=== PATIENT | female | born 1955 | race Caucasian/White ===

== ENCOUNTER → 2016-12-10 | Outpatient (CLI) | payer OTHER ==
[2016-12-10 13:57] LABS: BASO % 0.5 %; BASO ABS # 0.04 K/uL (0-0.2); COMPLETE YES; EOS % 3.8 %; IG% 0.4 %; LYMPH % 24.2 %; LYMPH ABS # 2.03 K/uL (1.2-3.4); MEAN CELL VOLUME 89.5 fL (80-100); MEAN CORPUSCULAR HGB CONC 32.4 g/dl (32-36); MEAN PLATELET VOLUME 9.4 fL (7.4-10.4); MONO % 10.2 %; NEUT % 60.9 %; PLATELET COUNT 233 K/uL (130-400); RED BLOOD COUNT 5.14 M/uL (4.2-5.4)
[2016-12-10 14:30] LABS: ALT/SGPT 41 U/L (12-78); AST/SGOT 31 U/L (15-37); BLOOD UREA NITROGEN 12 mg/dl (7-18); BUN/CREATININE RATIO 16.1 (10-20); CALCIUM 8.7 mg/dl (8.5-10.1); CARBON DIOXIDE 24 mmol/L (21-32); CHLORIDE 107 mmol/L (98-107); CHOLESTEROL 167 mg/dl (0-200); CREATININE 0.75 mg/dl (0.60-1.20); GLUCOSE 194 mg/dl (70-99); POTASSIUM 4.3 mmol/L (3.5-5.1); SODIUM 139 mmol/L (136-145); TRIGLYCERIDES 160 mg/dl (0-150); VERY LOW DENSITY LIPOPROT CALC 32 mg/dl
[2016-12-10 14:33] LABS: ALKALINE PHOSPHATASE 77 U/L (45-117); CHOLESTEROL/HDL RATIO 3.5; HDL CHOLESTEROL 48 mg/dl; LDL CHOLESTEROL CALCULATED 87 mg/dl
[2016-12-11 05:50] LABS: ESTIMATED AVERAGE GLUCOSE 237 mg/dl; HA1C FLAG Normal (Normal)
== END | disposition home or self-care (01) ==
LOC: C.LABBC 10:15
PROVIDERS: ATTEND Family Medicine
DX: E11.65 Type 2 diabetes mellitus with hyperglycemia (principal); E78.5 Hyperlipidemia, unspecified; Z13.0 Encounter for screening for diseases of the blood and blood-forming organs and certain disorders involving the immune mechanism

== ENCOUNTER → 2017-11-05 | Outpatient (CLI) | payer OTHER ==
[2017-11-05 13:49] LABS: HEMOGLOBIN A1C 8.7 % (4.5-5.6)
[2017-11-05 14:23] LABS: ALBUMIN 3.5 gm/dl (3.4-5.0); ALT/SGPT 35 U/L (12-78); AST/SGOT 24 U/L (15-37); BLOOD UREA NITROGEN 13 mg/dl (7-18); CALCIUM 8.8 mg/dl (8.5-10.1); CARBON DIOXIDE 27 mmol/L (21-32); CREATININE 0.81 mg/dl (0.60-1.20); GLUCOSE 184 mg/dl (70-99); POTASSIUM 4.3 mmol/L (3.5-5.1); SODIUM 136 mmol/L (136-145)
[2017-11-05 14:25] LABS: ALKALINE PHOSPHATASE 71 U/L (45-117); CHOLESTEROL 140 mg/dl (0-200); LDL CHOLESTEROL CALCULATED 72 mg/dl; TOTAL PROTEIN 7.2 gm/dl (6.4-8.2)
== END | disposition home or self-care (01) ==
LOC: C.LABBC 11:15
PROVIDERS: ATTEND Nurse Practitioner Adult Health
DX: E11.65 Type 2 diabetes mellitus with hyperglycemia (principal); E78.5 Hyperlipidemia, unspecified; I10 Essential (primary) hypertension

== ENCOUNTER → 2018-04-26 | Outpatient (CLI) | payer OTHER ==
[~2018-04-26] MED LIST: ADVIN25/60 INH; ASCA500 PO; HUMALOG SQ; INSDGIPEN SC; LIRA18IN SQ; LISI-729 PO; MONT1TAB5 PO; NAPR1TAB9 PO; PRVHFAIN INH; SACC250C11 PO; SIMV40TA2 PO; TIOT1AER2 INH; VARE1PAK15 PO; XLTOPS OPB
[2018-04-26 12:46] LABS: BASO % 0.8 %; BASO ABS # 0.07 K/uL (0-0.2); EOS % 7.5 %; EOS ABS # 0.63 K/uL (0-0.5); IG# 0.04 K/uL (0.00-0.02); LYMPH % 29.2 %; LYMPH ABS # 2.44 K/uL (1.2-3.4); MEAN CELL VOLUME 91.1 fL (80-100); MEAN CORPUSCULAR HEMOGLOBIN 29.1 pg (25-34); MEAN CORPUSCULAR HGB CONC 31.9 g/dl (32-36); MEAN PLATELET VOLUME 9.2 fL (7.4-10.4); MONO % 9.2 %; MONO ABS # 0.77 K/uL (0.11-0.59); NEUT % 52.8 %; NEUT ABS # 4.42 K/uL (1.4-6.5); PLATELET COUNT 234 K/uL (130-400); RED CELL DISTRIBUTION WIDTH CV 13.9 % (11.5-14.5); RED CELL DISTRIBUTION WIDTH SD 46.5 fL (36.4-46.3); WHITE BLOOD COUNT 8.37 K/uL (4.8-10.8)
[2018-04-26 12:58] LABS: BLOOD UREA NITROGEN 12 mg/dl (7-18); CALCIUM 8.7 mg/dl (8.5-10.1); CARBON DIOXIDE 25 mmol/L (21-32); CREATININE 0.75 mg/dl (0.60-1.20); GLUCOSE 141 mg/dl (70-99); POTASSIUM 4.3 mmol/L (3.5-5.1); PTT PATIENT 28.9 SECONDS (21.0-31.0); SODIUM 138 mmol/L (136-145)
--- NOTE | 2018-05-05 13:14 | CODING QUERY MEDICAL NECESSITY ---
CQTREATMENT RENDERED WITHOUT A DIAGNOSIS To promote full compliance with coding requirements relating to patient care, physician participation is requested in all cases of food and beverage associate uncertainty. Please assist us with providing a diagnosis/symptom for the test(s) below: A diagnosis/symptom was not documented on your Order. A valid diagnosis/symptom is required to bill all insurances. Please remember that we are unable to code a diagnosis of rule out, probable, possible, questionable, or suspected. Tests that require a diagnosis: DOS 04/26/18 CBC TEST PARTIAL RENAL PROFILE TEST C-REACTIVE PROTEIN TEST Provider Signature: Date: Thank you Ngozi Martinez Health Information Management Once completed, please kindly fax back to [phone] For questions please call [phone]
== END | disposition home or self-care (01) ==
LOC: C.LABBC 09:28
PROVIDERS: ATTEND Orthopaedic Surgery Sports Medicine
DX: Z01.812 Encounter for preprocedural laboratory examination (principal)

== ENCOUNTER 2018-05-26 08:17 | Inpatient (IN) | payer OTHER ==
[2018-02-21 08:08] VITALS: BMI 41.0
--- NOTE | 2018-05-17 17:21 | HISTORY & PHYSICAL EXAMINATION ---
DATE OF ADMISSION: 05/26/2018 CHIEF COMPLAINT: Left knee pain. HISTORY OF PRESENT ILLNESS: A 62-year-old white female referred by my partner Dr. Han for surgical treatment of her left knee. She has a long history of left knee pain and discomfort, describes it has gotten worse over time. She has been managed with multiple conservative modalities including injections which helped her temporarily only and have become less effective over time. Pain is mostly medial, it is increased with weightbearing. The knee also feels unstable like it can buckle at times. She reports catching and locking. She would like to have her knee fixed. PAST MEDICAL HISTORY: Past medical history significant for: 1. Asthma. 2. Diabetes with a history of poor control, currently undergoing strict monitoring to try and improve her control. 3. Hiatal hernia. 4. Obesity with a BMI of 41.3. PAST SURGICAL HISTORY: Previous surgeries include: 1. Herniorrhaphy. 2. . 3. Tubal . ALLERGIES: METFORMIN AND JANUVIA. CURRENT MEDICINES: Include: 1. Ventolin inhaler 2 puffs as needed. 2. Symbicort 2 puffs twice a day. 3. Spiriva inhaler once a day. 4. Simvastatin 40 mg daily. 5. Lisinopril 2.5 mg. 6. Montelukast 10 mg a day. 7. Humalog insulin. 8. Lantus insulin. 9. Latanoprost eyedrops 1 drop in each eye in the evening. SOCIAL HISTORY: A 62-year-old white female. She is . She lives in [place]. She smokes a pack of cigarettes a day. No significant alcohol intake. FAMILY HISTORY: Noncontributory. REVIEW OF SYSTEMS: Fairly poorly controlled diabetes. She is currently undergoing close monitoring to try and get this under better control. Also has a history of smoking. Denies any history of DVT or PE. PHYSICAL EXAMINATION: GENERAL: Physical examination reveals a pleasant middle-aged female, looks to be in reasonably good health. HEENT: Benign. NECK: Supple. No lymphadenopathy. LUNGS: Clear to auscultation. HEART: Has a regular rate and rhythm. ABDOMEN: Soft, nontender, nondistended. EXTREMITIES: Grossly neurovascularly intact except as follows: Examination of the left knee reveals the patient ambulates independently. She has got slight varus alignment to her knee. She does limp on the left side. [id number] size knee effusion. Range of motion is 5-1.5. No instability. No pain with hip motion. X-RAYS: X-rays of the left knee reviewed. She has advanced left knee DJD. Has complete loss of medial joint space. She has significant patellofemoral disease as well. Very large knee joint effusion. ASSESSMENT: A 62-year-old white female with advanced left knee degenerative joint disease unresponsive to conservative therapy. She would like to have her left knee replaced. PLAN: We are going to take her to the operating room to do a total knee replacement. The risks and benefits of this procedure were explained to the patient including but not limited to DVT, PE, , infection, neurological injury, vascular injury, bleeding problem, pain, limited range of motion, stiffness, failure to relieve her symptoms, incomplete relief of symptoms, and need for further surgery in future, fracture, leg length inequality, nerve palsy, need for blood transfusion, etc. The patient understands and desires to proceed. Informed consent was obtained. The patient does have poorly controlled diabetes. She is trying to get this under better control. I did talk to her about her increased risk of infection as a result and she is aware of. She is planning to be discharged to home using home nursing agency. She is completing smoking program. She knows to hold her lisinopril the morning of surgery. MIREILLE
[2018-05-26] VITALS (9 sets, daily range): BP systolic 122–174; BP diastolic 66–96; PULSE 84–96; TEMP 36.5–36.8; O2SAT 92–97; BMI 41.0
[~2018-05-26] VITALS: Ht 157.5 cm; Wt 102.5 kg
[2018-05-26] MEDS: LACTATED RINGER'S 1000ML 500 ML IV SCH ×2 (06:00→09:02)
[~2018-05-26 08:17] MED LIST changes: +ACETAMINOPHEN 500 MG TAB PO SCH; +BUPIVACAINE 0.25% 30 ML VIAL ONE; +BUPIVACAINE 0.5 % 5 MG/1 ML PF 10ML VIAL ONE; +BUPIVACAINE LIPOSOME 266 MG, BUPIVACAINE/EPINEPHRINE INJ 50 ML, SODIUM CHLORIDE 0.9% PF... INFIL SCH; +CEFAZOLIN 2000MG IV PUSH 15 ML IV SCH; +CeleBREX 200 MG CAP PO SCH; +FAMOTIDINE 20 MG TAB PO SCH; +FENTANYL CITRATE INJ 50 MCG/1 ML 2 ML VIAL ONE; +GABAPENTIN 600 MG PO SCH; +LACTATED RINGER'S 1000ML 1,000 ML IV SCH; +LACTATED RINGER'S 1000ML IV SCH; +METOCLOPRAMIDE HCL 10 MG TAB PO SCH; +MIDAZOLAM HCL 1 MG/ML 2ML VIAL ONE; +SCOPOLAMINE 1.5 MG TDSY TD SCH; +TRANEXAMIC ACID INJ 1,000 MG x 1 Bag Intra-Op IV SCH
--- NOTE | 2018-05-26 08:23 | History & Physical Bridge Note ---
H&P Re-Evaluation Bridge Note: I have examined the patient, reviewed the History & Physical and in the interval since the performance of the History & Physical I have noted the following changes of clinical significance: No changes noted
[2018-05-26] MEDS ORDERED: SODIUM CHLORIDE 0.9% PF 50 ML VIAL ONE (09:00)
[2018-05-26] MEDS ORDERED: BACITRACIN 50000 UNIT VIAL ONE (09:00)
[2018-05-26] MEDS ORDERED: BUPIVACAINE LIPOSOME 1/3% 266 MG/20 ML VIAL ONE (09:00)
[2018-05-26] MEDS ORDERED: EpINEphrine INJ 1MG/ML AMP 1 MG/ML AMP ONE (09:01)
[2018-05-26] MEDS ORDERED: BUPIVACAINE 0.25% 30 ML VIAL ONE (09:01)
[2018-05-26] MEDS ORDERED: EpHEDrine SULFATE INJ 50 MG/ML AMP IV PRN (10:15)
[2018-05-26] MEDS ORDERED: PHENYLEPHRINE 100MCG/ML 5ML SYR IV PRN (10:15)
[2018-05-26] MEDS ORDERED: HYDROmorphone INJ 2 MG/ML SYR/VIAL IV PRN (10:15)
[2018-05-26] MEDS ORDERED: ONDANSETRON INJ 2 MG/ML 2 ML VIAL IV PRN ×2 (10:15→12:00)
[2018-05-26] MEDS ORDERED: KETOROLAC TROMETHAMINE 30 MG/ML VIAL IV. PRN (10:15)
[2018-05-26] MEDS ORDERED: ATROPINE SULFATE 0.1 MG/ML 5ML SYR IV PRN (10:15)
[2018-05-26] MEDS ORDERED: DiphenhydrAMINE HCL 50 MG/ML VIAL ONE (10:22)
[2018-05-26] MEDS ORDERED: FENTANYL CITRATE INJ 50 MCG/1 ML 2 ML VIAL ONE (10:38)
[2018-05-26] MEDS ORDERED: MIDAZOLAM HCL 1 MG/ML 2ML VIAL ONE (10:51)
[2018-05-26] MEDS ORDERED: PROPOFOL IV EMULSION 10 MG/ML 20 ML VIAL ONE (10:54)
--- NOTE | 2018-05-26 11:46 | [facility] Post Operative Brief Note ---
Immediate Operative Summary Operative Date May 26, 2018. Pre-Operative Diagnosis Left Knee Degenerative Joint Disease Post-Operative Diagnosis Same as preop Procedure(s) Performed Left Total Knee Arthroplasty Surgeon Dr. Solano Radiology Scheduler Surgeon(s) Franklin Herndon PA-C Estimated Blood Loss 50 ml Findings Consistent with Post-Op Diagnosis Fluids (cc crystalloids) 1800 cc Specimens A. Left Knee Bone and Tissue Drains None Anesthesia Type MAC Spinal Regional Complication(s) none Disposition Accompanied Pt To Recover: no Disposition: Recovery Room / PACU Overlapping Procedure I was present for: the critical portions of procedure. I was immediately available: during the entire case
[2018-05-26] MEDS ORDERED: FLUMAZENIL 0.1 MG/1 ML 10 ML VIAL IV ONE (11:54)
[2018-05-26] MEDS ORDERED: INSULIN ASPART 100 UNITS/ML 3 ML PEN SQ SCH (12:00)
[2018-05-26] MEDS ORDERED: METOCLOPRAMIDE HCL INJ 5 MG/ML 2 ML VIAL IV PRN (12:00)
[2018-05-26] MEDS ORDERED: ZOLPIDEM TARTRATE 5 MG TAB PO PRN (12:00)
[2018-05-26] MEDS ORDERED: GLUCOSE 40% GEL 15 GM TUBE PO PRN (12:00)
[2018-05-26] MEDS ORDERED: GLUCAGON FOR INJ 1 MG VIAL SQ PRN (12:00)
[2018-05-26] MEDS ORDERED: SILVER SULFADIAZINE 1% CR 50 GM JAR EXT PRN (12:00)
[2018-05-26] MEDS ORDERED: ALBUTEROL HFA 8 GM INHALER INH PRN (12:00)
[2018-05-26] MEDS ORDERED: CEFAZOLIN IV 2,000 MG in DEXTROSE 5% 50ML 50 ML IV SCH (12:00)
[2018-05-26] MEDS ORDERED: SOD PHOSPHATE/SOD BIPHOSPHATE ENEMA 132 ML BTL PR PRN (12:00)
[2018-05-26] MEDS ORDERED: CARBOHYDRATES FOR HYPOGLYCEMIA PO PRN (12:00)
[2018-05-26] MEDS ORDERED: BISACODYL 10 MG SUPP PR PRN (12:00)
[2018-05-26] MEDS ORDERED: ALUMINUM/MAGNESIUM/SIMETH (MAALOX MAX) 30 ML UDC PO PRN (12:00)
[2018-05-26] MEDS ORDERED: GLUCOSE 10 TABS/TUBE PO PRN (12:00)
[2018-05-26] MEDS ORDERED: DEXTROSE 50% 50 ML SYR IV PRN (12:00)
[2018-05-26] MEDS ORDERED: MAGNESIUM HYDROXIDE SUSP 30 ML UDC PO PRN (12:00)
[2018-05-26] MEDS ORDERED: DiphenhydrAMINE HCL 50 MG/ML VIAL IV PRN (12:00)
[2018-05-26] MEDS ORDERED: HYDROmorphone INJ 0.5 MG/0.5 ML SYR IV PRN (12:00)
--- NOTE | 2018-05-26 12:30 | Anesthesiology Progress Note ---
Anesthesia Post Op Note Date & Time May 26, 2018 at 12:29 Vital Signs Pain Intensity: 0 Vital Signs Past 12 Hours Date Time Temp Pulse Resp B/P (MAP) Pulse Ox O2 Delivery O2 Flow Rate FiO2 05/26/18 12:25 138/64 05/26/18 12:25 36.5 88 20 138/64 (80) 94 Nasal Cannula 2 05/26/18 12:23 87 25 05/26/18 12:23 88 25 94 05/26/18 12:22 87 15 95 05/26/18 12:22 87 15 05/26/18 12:20 121/85 05/26/18 12:17 87 19 96 05/26/18 12:17 87 19 05/26/18 12:15 133/69 05/26/18 12:12 89 19 94 05/26/18 12:12 88 19 05/26/18 12:10 114/63 05/26/18 12:07 87 19 95 05/26/18 12:07 90 19 05/26/18 12:06 86 19 05/26/18 12:06 86 19 96 05/26/18 12:05 136/64 05/26/18 12:01 90 21 05/26/18 12:01 90 21 97 05/26/18 12:00 139/63 05/26/18 11:56 96 18 05/26/18 11:56 96 18 99 05/26/18 11:55 116/52 05/26/18 11:51 36.1 94 16 131/65 (75) 98 Oxymask 10 05/26/18 11:51 92 23 131/65 98 05/26/18 11:51 93 23 05/26/18 08:43 36.6 96 20 174/96 92 Room Air Notes Mental Status: alert / awake / arousable, participated in evaluation Pt Amnestic to Procedure: Yes Nausea / Vomiting: adequately controlled Pain: adequately controlled Airway Patency, RR, SpO2: stable & adequate BP & HR: stable & adequate Hydration State: stable & adequate Anesthetic Complications: no major complications apparent
--- NOTE | 2018-05-26 12:59 | OPERATIVE REPORT ---
DATE OF OPERATION: 05/26/2018 SURGEON: Tian Solano MD CALCULUS PROFESSOR: HODA Costello PREOPERATIVE DIAGNOSIS: Left knee degenerative joint disease. POSTOPERATIVE DIAGNOSIS: Left knee degenerative joint disease. PROCEDURE PERFORMED: Left cemented posterior stabilized total knee arthroplasty. COMPLICATIONS: None. ESTIMATED BLOOD LOSS: 50 mL. FLUID REPLACEMENT: 1800 mL crystalloid fluid replacement. TOURNIQUET TIME: 50 minutes at 300 mmHg. ANESTHESIA: Spinal with adductor canal block. DRAINS: None. SPECIMENS: Left knee sent for pathology. OPERATIVE INDICATIONS: The patient is a 62-year-old female who has had a fairly long history of left knee pain and discomfort. She has been treated by my partner Dr. Han for some time. This came less successful over time. Pain started really affecting her quality of life and she elected to proceed with total knee arthroplasty. OPERATIVE FINDINGS: Operative findings were advanced left knee DJD with extensive grade 4 changes of the medial femoral condyle and medial tibial plateau. The remainder of the knee was fairly well preserved. She did have some grade 3 changes on the undersurface of the patella. Moderate-sized knee effusion. OPERATIVE IMPLANTS: Operative implants consisted of: 1. Biomet Vanguard size 60 left posterior stabilized femoral component. 2. Biomet size 63 tibial tray. 3. A 12 mm posterior stabilized polyethylene insert. 4. A 25 x 8 all poly patella. OPERATIVE PROCEDURE: The patient was taken to the operating room, identified and placed on the operating room table in supine position. All contact areas were appropriately padded. IV antibiotics provided by anesthesia team. A spinal anesthetic and adductor canal block had been provided in the holding area. Chambers catheter was placed in sterile fashion. The left thigh tourniquet was then placed and the left lower extremity was then prepped and draped in usual sterile fashion. The left leg was elevated and exsanguinated with Esmarch and tourniquet was placed at 300 mmHg. An anterior approach of the left knee was then performed through a longitudinal incision centered over the patella. Sharp dissection was carried through subcutaneous tissue down to the level of the extensor mechanism. A medial parapatellar arthrotomy incision was made. Some subperiosteal dissection was carried out medially. The fat pad resected from beneath the patellar tendon. The lateral patellofemoral ligament was released. The patella was everted and knee was flexed. The osteophytes were taken off the distal femur. The ACL and PCL were then released from the distal femur. The tibia subluxated anteriorly. The external tibial alignment jig was then placed in the anterior face of the tibia and adjusted 14 mm medially. Proximal tibial cut was made to take about 3-4 mm of bone off the medial side as she did not have a whole lot of bony wear. Some osteophytes were taken off medial and posteromedially. Tibia sized to a size 63. Attention was then drawn to the femur. The distal femur was entered with a sharp drill bit. Intramedullary canal was suctioned. The left 5-degree valgus cutting guide was placed. Distal femoral cutting block was pinned in place. Distal femoral cut was made to take an additional 3 mm of bone off the distal femur. The femur was then sized to a size 60. It sized almost exactly to a 60. The AP cutting block was pinned parallel to the epicondylar axis, which was 5 degrees of external rotation. The anterior cut, anterior chamfer, posterior cut, posterior chamfer cuts were made. Box cutting guide was placed and adjusted slightly lateral and the box cut was made. The knee was flexed. The remnants of the medial and lateral menisci were excised. The osteophytes were taken off the posterior aspect of the femur. Trial femoral component was placed. Tibial tray was pinned in maximum external rotation, and drill and stem punch were used to create defect in proximal tibia for the tibial tray. The knee was then trialed and the 12 mm insert fit most appropriately. Attention was then drawn to the patella. The patella was cleaned of all soft tissues. Patella was quite small. The patella thickness measured 20 mm in thickness, it was cut down to 12. It was sized to a size 25 patella. Lug holes were drilled for a 25 patella. Lateral osteophyte was removed. Patella button was placed. Knee was taken through range of motion and patella tracked nicely with no thumbs test. Attention was then drawn toward placement of permanent components. A bone plug was placed in the distal femur to limit blood loss. The patient did receive 1 gram of tranexamic acid. A double batch of Palacos G cement was mixed. A left size 60 posterior stabilized femoral component, size 63 tibial tray, 12 mm posterior stabilized polyethylene insert, and a 25 x 8 all poly patella then cemented in place. Knee was brought into full extension until cement hardened. Final cement check was then performed. The pericapsular tissues were injected with a total of 100 mL of combination of 20 mL of Exparel, 30 mL of normal saline, 50 mL of 0.25% Marcaine with epinephrine. The patient did receive 1 gram of tranexamic acid, but the tourniquet was then let down for final tourniquet time of 50 minutes. Hemostasis was assured using electrocautery. The extensor mechanism was then closed with a combination of #1 PDS suture and #1 Vicryl suture in a [id number] fashion. Extensor mechanism was checked and found to be intact. Subcutaneous tissue was then closed with 2 Dexon suture in buried interrupted fashion. Skin was closed with skin miladys. Leg was then cleaned and dried and a sterile dressing of Xeroform, 4 x 4's, sterile cast padding and Nicanor bandage were applied. The patient then transferred to the recovery room in stable condition. The patient tolerated the procedure well with no complication. All needle and sponge counts were correct at the end of the operation. I attest to the content of the Intraoperative Record and any orders documented therein. Any exception s are noted below.
--- NOTE | 2018-05-26 13:00 | DIAGNOSTIC IMAGING REPORT ---
L KNEE 1 OR 2 VIEWS ROUTINE HISTORY: 62 years-old Female AP/LATERAL IN PACU LEFT KNEE left knee total joint arthroplasty. History of degenerative joint disease. COMPARISON: Left knee radiographs 05/18/2018 TECHNIQUE: 2 views of the left knee FINDINGS: Left knee total joint arthroplasty with patellar resurfacing. Anterior midline skin miladys are noted. Satisfactory alignment without fracture or opaque foreign body. Expected postsurgical soft tissue swelling and deep tissue air. IMPRESSION: Left knee total joint arthroplasty and patella resurfacing with satisfactory alignment. The above report was generated using voice recognition software. It may contain grammatical, syntax or spelling errors. Electronically signed by: Saji Meek M.D. 05/26/2018 12:59 PM Dictated Date/Time: 05/26/2018 12:58 PM
[2018-05-26] MEDS: SODIUM CHLORIDE 0.9% 1000ML 1,000 ML IV SCH ×2 (14:01→22:05)
[2018-05-26] MEDS: CEFAZOLIN IV 2,000 MG in SYRINGE 0 ML IV SCH ×2 (14:01→21:58)
--- NOTE | 2018-05-26 14:29 | PROGRESS NOTE ---
DATE: 05/26/2018 SUBJECTIVE: A 62-year-old white female postop from a left knee replacement. She is doing well. Not had any pain yet. No chest pain or shortness of breath. Not feeling dizzy or lightheaded. OBJECTIVE: VITAL SIGNS: Temperature is 36.8. Vital signs stable. GENERAL: Physical examination reveals a pleasant, middle-aged female. She is sitting up in bed and talking to her family. Looks pretty comfortable. LUNGS: Clear to auscultation. HEART: Has a regular rate and rhythm. ABDOMEN: Soft, nontender, nondistended. EXTREMITIES: Grossly neurovascularly intact except as follows: Examination of the left lower extremity reveals the leg to be well aligned. Dressing is clean, dry and intact. She can slightly dorsiflex and plantarflex her foot, but it is a bit weak. She has got brisk refill. Good distal pulse. X-RAYS: X-rays of the left knee from the recovery room reviewed. It shows cemented posterior stabilized total knee arthroplasty. Components looked to be in good position. No signs of problems. ASSESSMENT: A 62-year-old white female diabetic postop from a left knee replacement, doing pretty well. Pain is controlled. Her nerve function is returning, but not completely returned. She is pretty brittle diabetic and also in the process of trying to quit smoking. PLAN: 1. DVT prophylaxis including thigh-high TEDs, SCDs, and aspirin twice a day. 2. PT/OT. Weight bear as tolerated. Left total knee protocol. 3. Pain control, doing well with current pain regimen. 4. IV antibiotics x24 hours. 5. Diabetes. We will use insulin sliding scale coverage. Will get a pharmacy consult as needed for better glucose control as needed. 6. Smoking history. We will put a low level nicotine patch on. 7. Disposition: She is planning to be discharged home with some home health once adequately recovered.
[2018-05-26] MEDS ORDERED: INSULIN HUMAN REGULAR SC SCH (16:00)
[2018-05-26] MEDS: CHECK SCOPOLAMINE PATCH PLACEMENT SCH ×2 (16:00→23:38)
[2018-05-26] MEDS ORDERED: PHARMACY GLYCEMIC MGMT CONSULT PRN (16:30)
[2018-05-26] MEDS: ACETAMINOPHEN 500 MG TAB PO SCH ×2 (16:46→23:43)
[2018-05-26] MEDS: KETOROLAC TROMETHAMINE 30 MG/ML VIAL IV. SCH ×2 (16:46→21:59)
[2018-05-26] MEDS: TRAMADOL HCL 50 MG TAB PO PRN (17:07)
[2018-05-26] MEDS: FERROUS GLUCONATE 324 MG TAB PO SCH (17:36)
[2018-05-26] MEDS: INSULIN ASPART 100 UNITS/ML 3 ML PEN SC SCH ×3 (17:36→23:41)
[2018-05-26] MEDS ORDERED: TRANEXAMIC ACID INJ 1,000 MG in SODIUM CHLORIDE 0.9% 100ML 100 ML IV ONE (18:00)
[2018-05-26] MEDS: LATANOPROST 0.005% OP SOLN 2.5 ML BTL OPB SCH (21:00)
[2018-05-26] MEDS ORDERED: INSULIN GLARGINE SOLOSTAR 100 UNITS/ML 3 ML PEN SC SCH (21:00)
[2018-05-26] MEDS ORDERED: INSULIN GLARGINE SOLOSTAR 100 UNITS/ML 3 ML PEN SC ONE (21:30)
[2018-05-26] MEDS: FLUTICASONE/SALMETEROL 250/50 (ADVAIR) 14 PUFF/1 INHALER INH SCH (21:57)
[2018-05-26] MEDS: MONTELUKAST SOD 10 MG TAB PO SCH (21:59)
[2018-05-26] MEDS: ASPIRIN 81 MG ECTAB PO SCH (21:59)
[2018-05-26] MEDS: SENNA 8.6 MG TAB PO SCH (22:00)
[2018-05-26] MEDS: LISINOPRIL 2.5 MG TAB PO SCH (22:00)
[2018-05-26] MEDS: SIMVASTATIN 40 MG TAB PO SCH (22:00)
[2018-05-26] MEDS: DOCUSATE SODIUM 100 MG CAP PO SCH (22:00)
[2018-05-27] MEDS: INSULIN ASPART 100 UNITS/ML 3 ML PEN SC SCH ×5 (04:00→21:17)
[2018-05-27 04:02] VITALS: BP 128/72; PULSE 83; TEMP 36.7; O2SAT 94
[2018-05-27] MEDS: KETOROLAC TROMETHAMINE 30 MG/ML VIAL IV. SCH ×4 (04:22→21:14)
[2018-05-27 06:05] LABS: HEMATOCRIT 38.1 % (37-47); HEMOGLOBIN 12.4 g/dL (12.0-16.0); MEAN CELL VOLUME 91.4 fL (80-100); MEAN CORPUSCULAR HEMOGLOBIN 29.7 pg (25-34); MEAN CORPUSCULAR HGB CONC 32.5 g/dl (32-36); MEAN PLATELET VOLUME 8.9 fL (7.4-10.4); PLATELET COUNT 182 K/uL (130-400); RED CELL DISTRIBUTION WIDTH CV 13.8 % (11.5-14.5); RED CELL DISTRIBUTION WIDTH SD 45.8 fL (36.4-46.3); WHITE BLOOD COUNT 8.97 K/uL (4.8-10.8)
[2018-05-27 06:19] LABS: HEMOGLOBIN A1C 8.3 % (4.5-5.6)
[2018-05-27 06:37] LABS: CALCIUM 8.5 mg/dl (8.5-10.1); CREATININE 0.75 mg/dl (0.60-1.20); POTASSIUM 4.3 mmol/L (3.5-5.1)
[2018-05-27] MEDS: SODIUM CHLORIDE 0.9% 1000ML 1,000 ML IV SCH (07:46)
[2018-05-27 07:51] VITALS: BP 129/76; PULSE 88; TEMP 36.7; O2SAT 92
[2018-05-27] MEDS ORDERED: ULT50X PO (07:51)
[2018-05-27] MEDS ORDERED: ACET-24 PO (07:51)
[2018-05-27] MEDS ORDERED: ASPI-461 PO (07:51)
[2018-05-27] MEDS: CHECK SCOPOLAMINE PATCH PLACEMENT SCH ×2 (07:52→15:06)
--- NOTE | 2018-05-27 07:52 | Discharge Instructions ---
Discharge Instructions Date of Service May 27, 2018. Admission Reason for Admission: Discharge Discharge Diagnosis / Problem: Left Knee Replacement Discharge Goals Goal(s): Decrease discomfort, Improve function, Increase independence, Improve disease control, Therapeutic intervention Activity Recommendations Activity Limitations: per Instructions/Follow-up section Weightbearing Status: Left weightbearing . Instructions / Follow-Up Instructions / Follow-Up ACTIVITY RECOMMENDATIONS: Physical Therapy: * You will go to physical therapy three times each week for four to six weeks after your surgery in order to regain your knee range of motion and to retrain your knee to work properly. * It is just as important to make sure you are getting your knee perfectly straight as it is to regain your knee bend. * Taking a pain pill an hour before therapy can help you have a more productive and comfortable therapy session. Home Exercise: * You were shown a series of exercises (heel props, heel slides, etc.) in the hospital. Do these exercises three to four times each day including the exercises you were shown in physical therapy. Walking: * Get up and walk several times each day. For the first four weeks, try not to stand or walk for more than one hour at a time. If you do stand or walk for more than one hour, you will not hurt anything, but your knee and leg will likely swell. * As you feel comfortable, you may change from the walker or crutches to a cane and then to independent walking. MEDICATIONS: New Medicine: * You will likely be taking one or more of these medications: 1. Tramadol - A quick and shorter-acting pain medication. Take one to two tablets every four to six hours to lessen your pain. 2. Aspirin - Thins your blood to lessen the chance of forming a blood clot. * The most common side effects of pain medicine and iron are nausea and constipation. If nausea or constipation is too much of a problem or if you have any questions about your new medicines or doses, call [facility] at . We will try to help you manage these issues. VERY IMPORTANT TO READ AND REVIEW" Pain: * The immediate post-operative period after knee replacement surgery is often quite painful. * You are given a prescription for pain medicine. You should take it, as directed, when you need it, especially before physical therapy and before going to bed. Pain that interferes with sleep is very common and can last several months. * You will likely need pain medicine for the first four to six weeks. It will not stop all of the pain. The pain will lessen and as you feel better, you may change to milder pain medicine such as Tylenol. * The most common side effects of pain medicine are nausea and constipation, so don't take more than you need. SPECIAL CARE INSTRUCTIONS: TEDs/Elastic Stockings: * The white elastic stockings help limit swelling and prevent blood clots from forming in your legs. The more you wear them, the more they work. * Wear them for six weeks after knee replacement surgery and four weeks after partial knee replacement. Prevention of Infection: * Take antibiotics one hour before any dental cleaning, dental work, urological procedure, gastrointestinal procedure or any invasive surgery in order to prevent your new joint from getting infected. * You may get the antibiotics from the doctor performing the procedure or you may call our office at before and we will call in a prescription to the pharmacy of your choice. Things to Watch For: * Drainage from the incision site that occurs more than one week after your surgery. * Severely increased knee/leg pain or swelling. * Increased redness at the incision site. * Fever above 102 degrees Fahrenheit. * Unusual chest pain or shortness of breath. * Unusual pain or burning with urination. Call [facility] at with any of the above problems or if you have any questions about your medicines or recovery. FOLLOW UP VISIT: Make an appointment to see your doctor for approximately two weeks after surgery for a progress check and staple removal by calling the office at . Current Hospital Diet Patient's current hospital diet: Diabetes Type 2 Diet Discharge Diet Recommended Diet: Diabetes Type 2 Diet Procedures Procedures Performed: Left Total Knee Arthroplasty Pending Studies Studies pending at discharge: no Laboratory Results Hemoglobin A1c Test 05/27/18 05:37 Range/Units Estimated Average Glucose 192 mg/dl Hemoglobin A1c 8.3 H 4.5-5.6 % Medical Emergencies . Who to Call and When: Medical Emergencies: If at any time you feel your situation is an emergency, please call 911 immediately. . Non-Emergent Contact Non-Emergency issues call your: Surgeon . "Provider Documentation" section prepared by Tian Solano. .
--- NOTE | 2018-05-27 07:55 | PROGRESS NOTE ---
DATE: 05/27/2018 SUBJECTIVE: A 62-year-old female postop day 1 from a left knee replacement. She is doing well. Pain is controlled. Had pretty good night sleeping. No chest pain or shortness of breath. Not feeling dizzy or lightheaded. OBJECTIVE: VITAL SIGNS: Temperature 36.7. Vital signs stable. PHYSICAL EXAMINATION: GENERAL: Physical examination shows a pleasant, middle-aged female. She is sitting up in her bedside chair, looking reasonably comfortable. EXTREMITIES: Examination of the left leg reveals the dressing to be clean, dry and intact. She can dorsiflex and plantarflex her foot appropriately. She can do a pretty good straight leg raise. LABORATORY DATA: Hemoglobin 12.4. Hematocrit 38.1. Electrolytes are stable. Blood glucose has been pretty well controlled. ASSESSMENT: A 62-year-old female postoperative day 1 from left knee replacement, doing pretty well. Her pain is controlled. She is neurologically intact. Blood glucoses have been pretty well controlled. PLAN: 1. DVT prophylaxis including thigh-high TEDs, SCDs, and aspirin twice a day. 2. PT/OT. Weight bear as tolerated. Left total knee protocol. 3. Pain control, doing well with current pain regimen. 4. Disposition: Plan to discharge to home with some home health once adequately recovered.
[2018-05-27] MEDS ORDERED: TIOTROPIUM BROMIDE INH SCH (09:00)
[2018-05-27] MEDS: NICOTINE 7 MG/24 HR TDSY TD SCH (09:00)
[2018-05-27] MEDS ORDERED: LIRAGLUTIDE 0.6 MG SQ SCH (09:00)
[2018-05-27] MEDS: ASPIRIN 81 MG ECTAB PO SCH ×2 (09:20→21:14)
[2018-05-27] MEDS: ASCORBIC ACID 500 MG TAB PO SCH (09:20)
[2018-05-27] MEDS: PANTOprazole SOD 40 MG TAB PO SCH (09:21)
[2018-05-27] MEDS: SACCHAROMYCES BOUL (FLORASTOR) 250 MG CAP PO SCH (09:21)
[2018-05-27] MEDS: MULTIVITAMIN TAB PO SCH (09:21)
[2018-05-27] MEDS: DOCUSATE SODIUM 100 MG CAP PO SCH ×2 (09:21→21:14)
[2018-05-27] MEDS: FERROUS GLUCONATE 324 MG TAB PO SCH ×3 (09:21→17:47)
[2018-05-27] MEDS: ACETAMINOPHEN 500 MG TAB PO SCH ×2 (09:22→16:22)
[2018-05-27] MEDS: FLUTICASONE/SALMETEROL 250/50 (ADVAIR) 14 PUFF/1 INHALER INH SCH ×2 (09:22→21:14)
[2018-05-27] MEDS ORDERED: NURSING VERBAL MED ORDER ONE (10:00)
[2018-05-27 11:12] VITALS: BP 145/76; PULSE 94; TEMP 36.6; O2SAT 95
[2018-05-27 13:07] VITALS: Ht 157.5 cm; Wt 102.5 kg
--- NOTE | 2018-05-27 14:30 | Pharmacy Progress Note ---
Glycemic Control Intl Consult Date of Service May 27, 2018. Scope Glycemic Pharmacist consulted by Dr Tian Solano on 05/26/18 for glycemic control and to write orders per [facility] inpatient glycemic control protocol Objective Weight (Kilograms): 102.500 Accuchecks BSG (last 24hrs): Test 05/26/18 17:06 05/26/18 20:50 05/26/18 23:41 05/27/18 04:03 Bedside Glucose 206 mg/dl (70-90) 168 mg/dl (70-90) 126 mg/dl (70-90) 127 mg/dl (70-90) Test 05/27/18 05:37 05/27/18 08:11 05/27/18 12:00 Random Glucose 132 mg/dl (70-99) Bedside Glucose 161 mg/dl (70-90) 138 mg/dl (70-90) Laboratory Data (last 24hrs) Test 05/27/18 05:37 Anion Gap 7.0 mmol/L BUN/Creatinine Ratio 13.6 Blood Urea Nitrogen 10 mg/dl Creatinine 0.75 mg/dl Hemoglobin A1c 8.3 % Potassium Level 4.3 mmol/L Sodium Level 141 mmol/L White Blood Count 8.97 K/uL HbA1c Test 05/27/18 05:37 Hemoglobin A1c 8.3 % (4.5-5.6) H Recent Pertinent Medications Outpatient Anti-diabetic Regimen: * Lantus 80 units HS * Humalog with meals - 30units breakfast, 33 units lunch, 36 units dinner * Victoza 1.8 units SQ daily (currently on hold) * A1c = 8.3 % 05/27/18 Risk Factors for Insulin Resistance: * Recent Surgery: POD 1 TKA * Diet: Type 2 DM Assessment & Plan ASSESSMENT: * 62 year old type 2 diabetic, A1c above goal, POD 1 TKA * Will use home dose of Lantus and CR and CF based on TTD at home * ADA & AACE recommend a goal blood sugar range 140-180 mg/dl for the majority of critically ill & non-critically ill patients. However, more stringent targets may be selected in individual cases. Will utilize more stringent goal of 110-140mg/dl based on patient age & comorbidities. Additionally, tighter glycemic control is warranted to facilitate wound/infection healing. PLAN FOR INPATIENT GLYCEMIC CONTROL: * Basal insulin with LANTUS SQ HS * 60 units BSG < 140mg/dl * 70 units BSG 140mg/dl or greater * Correctional Insulin with NOVOLOG per scale ACHS or Q6hrs while NPO * Goal Range: Low 110 mg/dL - High 140 mg/dL * Correction Factor: 10 mg/dL/unit * Nutritional / Prandial insulin per carb ratio of 1 unit per 3 grams CHO consumed DISCHARGE RECOMMENDATIONS: * A1C 8.3% - would recommend follow up with endocrine regarding insulin dosing, meals, and activity * Please note that the plan above was derived based on current level of insulin resistance and hospital stress. These recommendations are appropriate for inpatient admission only. Plan of care upon discharge will need to be reassessed to avoid potential outpatient hypo/hyperglycemia. Thank you.
[2018-05-27 14:53] VITALS: BP 128/74; PULSE 83; TEMP 36.8; O2SAT 94
[2018-05-27] MEDS: TRAMADOL HCL 50 MG TAB PO PRN (16:22)
[2018-05-27] MEDS ORDERED: INSULIN GLARGINE SOLOSTAR 100 UNITS/ML 3 ML PEN SC SCH (21:00)
[2018-05-27] MEDS: MONTELUKAST SOD 10 MG TAB PO SCH (21:14)
[2018-05-27] MEDS: LISINOPRIL 2.5 MG TAB PO SCH (21:14)
[2018-05-27] MEDS: SIMVASTATIN 40 MG TAB PO SCH (21:14)
[2018-05-27] MEDS: LATANOPROST 0.005% OP SOLN 2.5 ML BTL OPB SCH (21:14)
[2018-05-27] MEDS: SENNA 8.6 MG TAB PO SCH (21:14)
[2018-05-27 22:49] VITALS: BP 124/74; PULSE 96; TEMP 36.8; O2SAT 94
[2018-05-28] MEDS: ACETAMINOPHEN 500 MG TAB PO SCH ×2 (00:45→07:48)
[2018-05-28] MEDS: TRAMADOL HCL 50 MG TAB PO PRN ×2 (01:03→10:28)
[2018-05-28] MEDS: KETOROLAC TROMETHAMINE 30 MG/ML VIAL IV. SCH ×2 (03:16→10:28)
[2018-05-28 06:48] VITALS: BP 117/64; PULSE 85; TEMP 36.6; O2SAT 93
[2018-05-28] MEDS: CHECK SCOPOLAMINE PATCH PLACEMENT SCH ×2 (07:09)
[2018-05-28] MEDS: NICOTINE 7 MG/24 HR TDSY TD SCH (07:13)
[2018-05-28 07:21] VITALS: BP 117/64; PULSE 85; TEMP 36.6; O2SAT 93
[2018-05-28] MEDS: FLUTICASONE/SALMETEROL 250/50 (ADVAIR) 14 PUFF/1 INHALER INH SCH (07:47)
[2018-05-28] MEDS: SACCHAROMYCES BOUL (FLORASTOR) 250 MG CAP PO SCH (07:48)
[2018-05-28] MEDS: ASPIRIN 81 MG ECTAB PO SCH (07:48)
[2018-05-28] MEDS: PANTOprazole SOD 40 MG TAB PO SCH (07:48)
[2018-05-28] MEDS: FERROUS GLUCONATE 324 MG TAB PO SCH (07:48)
[2018-05-28] MEDS: DOCUSATE SODIUM 100 MG CAP PO SCH (07:48)
[2018-05-28] MEDS: ASCORBIC ACID 500 MG TAB PO SCH (07:48)
[2018-05-28] MEDS: MULTIVITAMIN TAB PO SCH (07:48)
[2018-05-28] MEDS: INSULIN ASPART 100 UNITS/ML 3 ML PEN SC SCH (07:54)
[2018-05-28 07:55] VITALS: BP 107/75; PULSE 86; TEMP 36.7; O2SAT 93
[2018-05-28] MEDS ORDERED: NURSING VERBAL MED ORDER ONE (08:30)
--- NOTE | 2018-05-28 08:39 | PROGRESS NOTE ---
DATE: 05/28/2018 SUBJECTIVE: A 62-year-old white female postop day 2 from a left knee replacement. Doing pretty well. Pain is controlled. Therapy has gone well. Denies any chest pain or shortness of breath. OBJECTIVE: VITAL SIGNS: Temperature is 36.5. Vital signs stable. GENERAL: Physical examination reveals a pleasant, middle-aged female. She is sitting up in her bedside chair, looks pretty comfortable. EXTREMITIES: Examination of the left leg reveals the dressing to be clean, dry and intact. No significant drainage. Some moderate amount of bruising around the incision site. She can dorsiflex and plantarflex her foot appropriately. She can do a good straight leg raise. ASSESSMENT: A 62-year-old white female postop day 2 from a left knee replacement, doing well. Pain is controlled. She is neurologically intact. PLAN: 1. DVT prophylaxis including thigh-high TEDs, SCDs, and aspirin twice a day. 2. PT/OT. Weight bear as tolerated. Left total knee protocol. 3. Pain control, doing well with current pain regimen. 4. Disposition: Plan to discharge to home with some home health later today.
[2018-05-28] MEDS ORDERED: TIOTROPIUM BROMIDE 5 PUFF/90 MCG INH INH SCH (09:00)
[2018-05-28] MEDS ORDERED: FLUCONAZOLE 50 MG TAB PO ONE (09:00)
--- NOTE | 2018-06-01 16:38 | DISCHARGE SUMMARY ---
ADMITTING PHYSICIAN AND SURGEON: Dr. Solano. ADMITTING DIAGNOSIS: Left knee degenerative joint disease. SURGERY PERFORMED: Left total knee arthroplasty. SECONDARY DIAGNOSES: Asthma, diabetes, hiatal hernia, obesity. CONSULTS: None obtained. HISTORY AND PHYSICAL EXAMINATION: Well documented in the patient's chart. HOSPITAL COURSE: The patient was admitted on 05/26/2018, underwent a total knee arthroplasty, tolerated the procedure well. There were no complications. She was transferred to the PACU postoperatively and later to the orthopedic for further care. She was given Ancef for antibiotic prophylaxis, CAMILA stockings, SCDs and aspirin for DVT prophylaxis. Hemoglobin, hematocrit and vital signs were monitored during her hospital stay and remained stable. She did not require any blood transfusions. There were no complications. By postoperative day 2, she was tolerating a diabetic diet. Pain was controlled with oral pain medicine. She was participating in physical therapy. On postop day 2, she was discharged home, set up with home health services. She was given printed discharge instructions including new prescriptions for extra-strength Tylenol, aspirin and tramadol. Continue her home medications, continue physical therapy, weightbearing as tolerated, CAMILA stockings. Follow up in approximately 2 weeks postoperatively or sooner if there are any problems or concerns.
== END 2018-05-28 10:45 | disposition home health service (06) | DRG 470 ==
LOC: C.ACU 08:17 → C.3E 11:51 → ENRESERV 12:22
PROVIDERS: ADMIT Orthopaedic Surgery Sports Medicine; ATTEND Orthopaedic Surgery Sports Medicine
PROC: 0SRD0J9 Replacement of Left Knee Joint with Synthetic Substitute, Cemented, Open Approach (ICD-10-PCS; principal; 2018-05-26 11:00)
DX: M17.12 Unilateral primary osteoarthritis, left knee (principal); Z68.41 Body mass index [BMI] 40.0-44.9, adult; J45.909 Unspecified asthma, uncomplicated; E11.9 Type 2 diabetes mellitus without complications; K44.9 Diaphragmatic hernia without obstruction or gangrene; E66.9 Obesity, unspecified; Z88.8 Allergy status to other drugs, medicaments and biological substances; Z79.4 Long term (current) use of insulin